=== PATIENT | female | born 1975 | race African-American/Black ===

== ENCOUNTER 2017-05-10 13:46 | Outpatient (CLI) | payer MEDICARE, MEDICAID ==
[2017-05-10 15:09] LABS: #Eosinphils 0.2 thou/uL (0.0-0.7); #Lymphocytes 2.1 thou/uL (1.20-3.40); #Monocytes 0.3 thou/uL (0.11-0.59); #Neutrophils 3.2 thou/uL (1.40-6.50); %Basophils 0.6 % (0.0-1.0); %Lymphocytes 36.8 % (21.0-51.0); %Monocytes 4.4 % (0.0-10.0); Hematocrit 35.6 % (36.0-47.0); Mean Platelet Volume 7.1 fL (7.4-10.4); Red Blood Cell (RBC) Count 4.15 mill/uL (4.20-5.40); White Blood Cell (WBC) Count 5.7 thou/uL (4.8-10.8)
[2017-05-10 15:30] LABS: Anion Gap 10 mmol/L (10-20); BUN (Urea Nitrogen) 6 mg/dL (7.0-18.7); Calc. Creatinine Clearance 0 mL/min (70-130); Calcium 8.8 mg/dL (7.8-10.44); Carbon Dioxide 27 mmol/L (22-29); Chloride 108 mmol/L (98-107); Estimated GFR-MDRD 86
== END 2017-05-10 13:47 | disposition home or self-care (01) ==
LOC: LABBT 13:46
PROVIDERS: ATTEND Orthopaedic Surgery Hand Surgery
DX: Z01.812 Encounter for preprocedural laboratory examination (principal); M65.311 Trigger thumb, right thumb; M65.4 Radial styloid tenosynovitis [de Quervain]
CPT/HCPCS: 80048; 84702; 85025

== ENCOUNTER 2017-05-14 11:50 | Day surgery (SDC) | payer MEDICARE, MEDICAID ==
[2017-05-10 14:20] VITALS: BMI 55.7
[2017-05-14] MEDS ORDERED: Midazolam HCl 2 mg/2 ml Vial ONE ×2 (16:12→18:20)
[2017-05-14] MEDS ORDERED: Fentanyl 100 MCG/2 ML VIAL ONE (16:13)
[2017-05-14] MEDS ORDERED: Bacitracin Zinc Ointment 30 gm TUBE ONE (17:55)
[2017-05-14] MEDS ORDERED: Bupivacaine PF 0.5% 30 ML VIAL ONE (17:55)
[2017-05-14] MEDS ORDERED: Sodium Chloride 0.9% 10 ML ONE (17:55)
[2017-05-14] MEDS ORDERED: Betamet Acet/Betamet Na Ph 30 MG/5 ML VIAL ONE (17:55)
[2017-05-14] MEDS ORDERED: Dexamethasone 20 MG/5 ML VIAL ONE (18:44)
[2017-05-14] MEDS ORDERED: Ondansetron HCl/PF 4 MG/2 ML Vial ONE (18:44)
--- NOTE | 2017-05-15 07:12 | OP ---
DATE OF SURGERY: 05/14/2017 PREOPERATIVE DIAGNOSES: 1. Right thumb A1 nam triggering. 2. Right wrist first dorsal compartment tenosynovitis. POSTOPERATIVE DIAGNOSES: 1. Right thumb A1 nam triggering. 2. Right wrist first dorsal compartment tenosynovitis. FINDINGS: 1. Moderate thickening in A1 nam right thumb with no tenosynovitis flexor pollicis longus. 2. 5 different sleeves of the abductor pollicis longus seen at the level of the A1 nam, all conn ected by syndicating or scarring and a separate compartment for extensor pollicis brevis and it itse lf in that compartment had 2 sleeves. COMPLICATIONS: None. TOURNIQUET TIME: 25 minutes. PROCEDURE PERFORMED: Right first dorsal comparment de Quervain release and right trigger thumb rele ase. INDICATIONS: Failed conservative treatment with tenderness, pain with , and marked intermitten t catching at the thumb with flexion. DESCRIPTION OF PROCEDURE: After successful block which was given approximately one and a half hours prior to the procedure, the patient had only a little bit of Versed by Anesthesia. I gave her 8 mL 0.5% Marcaine between two incisions, and a longitudinal incision was then made for the A1 nam re lease and the trigger digit. A1 nam release at the thumb and the de Quervain's. The thumb was pulled first with an oblique incision as part of bruises was outlined, beginning 5 mm proximal and 6 mm distal to the treatment of the thumb site. The skin and subcutaneous tissue with the tourniquet inflated to 250 mmHg. We could easily find the tissue planes. We retracted this ner ves safely. Visualized very thick A1 nam, released to check the tendon for any problems and ther e were none. We then turned attention to the zigzag incision outlining the first dorsal compartment which had als o given the same amount of Marcaine for institutional blockade. The limb was exsanguinated and infl ated tourniquet was at 250 mmHg. The zigzag incision was then carried to the skin and subcutaneous tissue and it was dissected from the superficial and radial nerve branches free from the field. We then a very tight dorsal retinaculum and in its mid substance was released and the palmar surf rissa slightly gently resected in order to prevent the risk of recurrence or subluxation. Then, we sa w the sleeves were all clean and devoid of any tenosynovitis or other impediments and the patient mccarty d the [place] in place here as it had been in the thumb in 2 mL and the patient left the operating room with a bulky dressing, a thumb splint and no evidence of anesthetic or operative complication.
== END 2017-05-14 20:25 | disposition home or self-care (01) ==
LOC: SDC 11:50
PROVIDERS: ATTEND Orthopaedic Surgery Hand Surgery
PROC: 0LN70ZZ Release Right Hand Tendon, Open Approach (ICD-10-PCS; principal; 2017-05-14)
PROC: 0KN90ZZ Release Right Lower Arm and Wrist Muscle, Open Approach (ICD-10-PCS; 2017-05-14)
DX: M65.311 Trigger thumb, right thumb (principal); M65.4 Radial styloid tenosynovitis [de Quervain]; Z88.5 Allergy status to narcotic agent; Z98.890 Other specified postprocedural states
CPT/HCPCS: A4216; J0702; J1100; J2250; J2405; J3010; J3490; S0020

== ENCOUNTER 2017-10-07 15:58 | Outpatient (CLI) | payer MEDICARE, MEDICAID | END 2017-10-07 15:59 | disposition home or self-care (01) | LOC: BICRAD 15:58 | PROVIDERS: ATTEND Internal Medicine | DX: M54.40 Lumbago with sciatica, unspecified side (principal); J01.90 Acute sinusitis, unspecified; M47.897 Other spondylosis, lumbosacral region; M48.07 Spinal stenosis, lumbosacral region | CPT/HCPCS: 71046; 72100 ==

== ENCOUNTER 2017-10-23 01:17 | Emergency (ER) | payer MEDICARE, MEDICAID ==
[2017-10-23] MEDS ORDERED: Ketorolac Tromethamine 30 MG/ML VIAL ONE (02:11)
--- NOTE | 2017-10-23 08:28 | RAD ---
THREE VIEWS LEFT MIDDLE FINGER: Date: 10-23-17 Comparison: None. History: Jammed middle finger, trauma, pain. FINDINGS: No displaced fracture or evidence of dislocation. Soft tissue swelling is seen involving the middle f troy. IMPRESSION: Soft tissue swelling with no displaced fracture or dislocation seen. POS: [facility]
== END 2017-10-23 02:36 | disposition home or self-care (01) ==
LOC: ERS 01:17
DX: S63.633A Sprain of interphalangeal joint of left middle finger, initial encounter (principal); J45.909 Unspecified asthma, uncomplicated; F41.9 Anxiety disorder, unspecified; F31.9 Bipolar disorder, unspecified; X50.1XXA Overexertion from prolonged static or awkward postures, initial encounter
CPT/HCPCS: 96372; J1885

== ENCOUNTER 2017-10-25 20:30 | Outpatient (CLI) | payer MEDICARE, MEDICAID | END 2017-10-25 20:31 | disposition home or self-care (01) | LOC: SLEEPLAB 20:30 | PROVIDERS: ATTEND Internal Medicine | DX: G47.33 Obstructive sleep apnea (adult) (pediatric) (principal); G47.52 REM sleep behavior disorder | CPT/HCPCS: 95810 ==

== ENCOUNTER 2017-11-08 19:30 | Outpatient (CLI) | payer MEDICARE, MEDICAID | END 2017-11-08 19:31 | disposition home or self-care (01) | LOC: SLEEPLAB 19:30 | PROVIDERS: ATTEND Internal Medicine | DX: G47.33 Obstructive sleep apnea (adult) (pediatric) (principal); E66.9 Obesity, unspecified; Z68.43 Body mass index [BMI] 50.0-59.9, adult | CPT/HCPCS: 95811 ==